=== PATIENT | female | born 1945 | race African-American/Black ===

== ENCOUNTER 2021-03-05 12:59 | Emergency (ER) | payer OTHER ==
[~2021-03-05] VITALS: Ht 165.1 cm; Wt 80.0 kg
[2021-03-05] MEDS ORDERED: GUAIFENESIN 600MG ER TABLET PO STA (13:14)
[2021-03-05] MEDS ORDERED: FLUTICASONE PROPIONATE 50MCG/SPRAY BOTTLE BOTHNSTRLS STA (13:14)
[2021-03-05] MEDS ORDERED: ALBUTEROL (0.083%) 2.5MG/3ML NEB HHN STA (13:21)
[2021-03-05] MEDS ORDERED: IPRATROPIUM BROMIDE (0.02%) 0.5MG/2.5ML NEB HHN STA (13:21)
[2021-03-05 14:36] LABS: HEMATOCRIT. 30.6 % (36.0-48.0); HEMOGLOBIN. 9.5 g/dL (12.0-16.0); MEAN CORPUSCULAR HEMOGLOBIN 25.5 pg (28.0-32.0); MEAN CORPUSCULAR VOLUME 82.5 fL (81.0-99.0); MEAN PLATELET VOLUME 8.5 fl (7.4-10.4); PLATELET 271 x1000/uL (130-400); RED BLOOD CELL COUNT 3.71 mill/uL (4.2-5.4); RED CELL DISTRIBUTION WIDTH 18.7 % (11.6-14.6)
[2021-03-05 14:39] LABS: CHLORIDE 105 mEq/L (98-107)
[2021-03-05 15:02] LABS: CLARITY URINE CLEAR (CLEAR); COLOR URINE YELLOW (YELLOW); KETONES URINE NEGATIVE (NEGATIVE); LEUKOCYTE ESTERASE URINE NEGATIVE (NEGATIVE); NITRITE URINE NEGATIVE (NEGATIVE); OCCULT BLOOD URINE NEGATIVE (NEGATIVE); PH URINE 7.5 (4.5-8.0); PROTEIN URINE NEGATIVE (NEGATIVE); SPECIFIC GRAVITY URINE 1.015 (1.005-1.030); UROBILINOGEN URINE 0.2 E.U./dL (0.2-1.0)
[2021-03-05 15:03] LABS: NUCLEATED RED BLOOD CELLS 2 /100 WBC; PLATELET ESTIMATE NORMAL
[2021-03-05] MEDS ORDERED: GUAI177L6 PO (15:24)
[2021-03-05] MEDS ORDERED: FLUT9.9S BOTHNSTRLS (15:24)
[2021-03-05] MEDS ORDERED: ACETAMINOPHEN 325MG TABLET PO ONE (16:15)
[2021-03-05 17:20] VITALS: BP 162/81
== END 2021-03-05 17:41 | disposition home or self-care (01) ==
LOC: ER 13:26
DX: H93.12 Tinnitus, left ear (principal); R09.89 Other specified symptoms and signs involving the circulatory and respiratory systems; J44.9 Chronic obstructive pulmonary disease, unspecified; R51.9 Headache, unspecified; D64.9 Anemia, unspecified; I10 Essential (primary) hypertension; E11.9 Type 2 diabetes mellitus without complications
CPT/HCPCS: 36415; 71045; 80053; 81003; 85025; 93005; 94640; 99285

== ENCOUNTER 2023-01-18 02:36 | Inpatient (IN) | payer OTHER, MEDICAID ==
[~2023-01-18] VITALS: Ht 172.7 cm; Wt 86.9 kg
[~2023-01-18 02:36] MED LIST: FLUT9.9S BOTHNSTRLS; GUAI177L6 PO
[2023-01-18] MEDS ORDERED: LABETALOL HCL VIAL 20 MG/4 ML VIAL IV ONE ×2 (03:00→06:45)
[2023-01-18] MEDS ORDERED: FUROSEMIDE 40MG/4ML VIAL IV ONE (03:00)
[2023-01-18] MEDS ORDERED: NITROGLYCERIN OINT 1GM/INCH UDPKT TD ONE (03:00)
[2023-01-18] MEDS ORDERED: NITROGLYCERIN 0.4MG TABLET SL SL PRN ×2 (03:00→13:15)
[2023-01-18 03:07] LABS: BASOPHILS % 0.4 % (0.0-2.0); EOSINOPHILS % 0.2 % (0.0-5.0); HEMOGLOBIN. 13.1 g/dL (12.0-16.0); MEAN CORPUSCULAR HEMOGLOBIN 27.9 pg (28.0-32.0); MEAN CORPUSCULAR VOLUME 87.5 fL (81.0-99.0); MEAN PLATELET VOLUME 8.9 fl (7.4-10.4); MONOCYTES % 9.1 % (2.0-8.0); NEUTROPHILS % 73.3 % (40.0-76.0); PLATELET 173 x1000/uL (130-400); RED BLOOD CELL COUNT 4.68 mill/uL (4.2-5.4); RED CELL DISTRIBUTION WIDTH 18.2 % (11.6-14.6)
[2023-01-18 03:16] LABS: CHLORIDE 102 mEq/L (98-107)
[2023-01-18] MEDS ORDERED: CEFTRIAXONE 1 G PREMIX 50 ML IV NR (03:30)
[2023-01-18] MEDS ORDERED: ALBUTEROL (0.083%) 2.5MG/3ML NEB HHN NR (03:30)
[2023-01-18] MEDS ORDERED: AZITHROMYCIN 500 MG in DEXT 5% WATER 250 ML IV NR (03:30)
[2023-01-18 04:22] LABS: BG BASE EXCESS 2.3 mmol/L (-2.0-2.0); BG CARBOXYHEMOGLOBIN 0.5 % (0.5-1.5); BG DEOXYHEMOGLOBIN 0.3 % (0.0-5.0); BG FRACTION INSPIRED OXYGEN 100; BG HCO3 ACT 28.1 mmol/L (22.0-26.0); BG METHEMOGLOBIN 0.4 % (0.0-1.5); BG OXYGEN SATURATION 99.7 % (92.0-98.5); BG OXYHEMOGLOBIN 98.8 % (94.0-97.0); BG PCO2 48.6 mmHg (35.0-45.0); BG PO2 423.1 mmHg (75.0-100.0); BG SAMPLE SITE RIGHT RADIAL; BG TOTAL HEMOGLOBIN 13.2 g/dL (12.0-18.0); BG TOTAL RESPIRATORY RATE 14 b/min; BG VENT MODE MASK - BIPAP
[2023-01-18] MEDS ORDERED: LABETALOL 5MG/ML SYR 20 MG/4 ML SYRINGE IV NR (07:00)
[2023-01-18] MEDS ORDERED: MAGNESIUM/ALUMINUM HYDROXIDE/SIMETHICONE 30ML UDC PO PRN (13:15)
[2023-01-18] MEDS ORDERED: DOCUSATE SODIUM 100MG CAPSULE PO PRN (13:15)
[2023-01-18] MEDS ORDERED: KETOROLAC 15MG/ML VIAL IV PRN (13:15)
[2023-01-18] MEDS ORDERED: IPRATROPIUM/ALBUTEROL 0.5-3(2.5)MG/3ML NEB NEB PRN (13:15)
[2023-01-18] MEDS ORDERED: ACETAMINOPHEN 325MG TABLET PO PRN ×2 (13:15)
[2023-01-18] MEDS ORDERED: ONDANSETRON HCL 4MG/2ML INJ IV PRN (13:15)
[2023-01-18] MEDS ORDERED: CLONIDINE 0.1MG TABLET PO PRN (13:15)
[2023-01-18] MEDS ORDERED: NA PHOS,M-B/NA PHOS,DI-BA ENEMA 118ML PR PRN (13:15)
[2023-01-18] MEDS ORDERED: GUAIFENESIN 200MG/10ML SUGAR FREE UDC PO PRN (13:15)
[2023-01-18] MEDS ORDERED: LEVOFLOXACIN 500MG PREMIX 100 ML IV SCH (13:30)
[2023-01-18] MEDS: IPRATROPIUM BROMIDE (0.02%) 0.5MG/2.5ML NEB HHN SCH ×2 (14:25→20:30)
[2023-01-18] MEDS: ALBUTEROL (0.083%) 2.5MG/3ML NEB HHN SCH ×2 (14:25→20:29)
[2023-01-18] MEDS ORDERED: IPRATROPIUM/ALBUTEROL 0.5-3(2.5)MG/3ML NEB HHN SCH (16:00)
[2023-01-18 16:04] LABS: VITAMIN B12 SERUM >2000 pg/mL pg/mL (211-911)
[2023-01-18] MEDS ORDERED: FUROSEMIDE 40MG/4ML VIAL IVP SCH (17:00)
[2023-01-18] MEDS: METHYLPREDNISOLONE SOD SUCC 125 MG/2 ML VIAL IV SCH (17:05)
[2023-01-18] MEDS: ENOXAPARIN 40MG/0.4ML SYR SUBCUT SCH (17:09)
[2023-01-18] MEDS: NITROGLYCERIN OINT 1GM/INCH UDPKT TD SCH (17:27)
[2023-01-18] MEDS: FUROSEMIDE 40MG/4ML VIAL IVP SCH (18:38)
[2023-01-18 19:36] LABS: *AMPHETAMINES SCREEN URINE NEGATIVE (NEGATIVE); *BARBITURATES SCREEN URINE NEGATIVE (NEGATIVE); *BENZODIAZEPINES SCREEN URINE NEGATIVE (NEGATIVE); *COCAINE SCREEN URINE NEGATIVE (NEGATIVE); CANNABINOID URINE SCREEN NEGATIVE (NEGATIVE); METHADONE URINE SCREEN NEGATIVE (NEGATIVE); OPIATES URINE SCREEN NEGATIVE (NEGATIVE); PHENCYCLIDINE URINE SCREEN NEGATIVE (NEGATIVE)
[2023-01-18 19:46] LABS: CREATINE KINASE MB FRACTION 2.1 ng/mL (0.5-3.6)
[2023-01-18 19:50] LABS: ETHANOL BLOOD < 10 mg/dL; HDL CHOLESTEROL 63 mg/dL (40-59); LDL CHOLESTEROL 50 mg/dL (5-100); T4 FREE 1.31 ng/dL (0.76-1.46); TOTAL IRON BINDING CAPACITY 317 ug/dL (250-450)
[2023-01-18] MEDS ORDERED: ZOLPIDEM TARTRATE 5MG TABLET PO PRN (21:00)
[2023-01-19] VITALS (11 sets, daily range): BP systolic 129–173; BP diastolic 71–94
[2023-01-19] MEDS ORDERED: ALBUTEROL (0.083%) 2.5MG/3ML NEB ONE (00:52)
[2023-01-19] MEDS: IPRATROPIUM BROMIDE (0.02%) 0.5MG/2.5ML NEB HHN SCH ×5 (01:00→20:26)
[2023-01-19] MEDS: ALBUTEROL (0.083%) 2.5MG/3ML NEB HHN SCH ×5 (01:00→20:26)
[2023-01-19] MEDS: GUAIFENESIN 600MG ER TABLET PO SCH ×3 (01:50→21:52)
[2023-01-19] MEDS: ASCORBIC ACID 500 MG TABLET PO SCH ×3 (01:50→21:53)
[2023-01-19] MEDS: FAMOTIDINE 20MG TABLET PO SCH ×3 (01:50→21:52)
[2023-01-19] MEDS: METHYLPREDNISOLONE SOD SUCC 125 MG/2 ML VIAL IV SCH ×4 (01:51→21:52)
[2023-01-19] MEDS: SPIRONOLACTONE 25MG TABLET PO SCH ×3 (01:51→21:53)
[2023-01-19] MEDS: NITROGLYCERIN OINT 1GM/INCH UDPKT TD SCH ×4 (01:51→21:54)
[2023-01-19] MEDS: FUROSEMIDE 40MG/4ML VIAL IVP SCH ×2 (05:28→19:13)
[2023-01-19] MEDS ORDERED: IPRATROPIUM BROMIDE (0.02%) 0.5MG/2.5ML NEB HHN PRN (07:45)
[2023-01-19] MEDS ORDERED: ALBUTEROL (0.083%) 2.5MG/3ML NEB HHN PRN (07:45)
[2023-01-19] MEDS ORDERED: ASPIRIN 325MG EC TABLET PO SCH (09:00)
[2023-01-19] MEDS ORDERED: ZINC SULFATE 220 MG ( 50 ) CAPSULE PO SCH (09:00)
[2023-01-19] MEDS ORDERED: LOSARTAN POTASSIUM 50 MG TABLET PO SCH (09:00)
[2023-01-19 09:41] LABS: HEMATOCRIT. 40.1 % (36.0-48.0); HEMOGLOBIN. 13.2 g/dL (12.0-16.0); MEAN CORPUSCULAR HEMOGLOBIN 28.6 pg (28.0-32.0); MEAN CORPUSCULAR VOLUME 87.2 fL (81.0-99.0); MEAN PLATELET VOLUME 8.7 fl (7.4-10.4); PLATELET 146 x1000/uL (130-400); RED CELL DISTRIBUTION WIDTH 17.7 % (11.6-14.6)
[2023-01-19 09:50] LABS: CHLORIDE 98 mEq/L (98-107)
[2023-01-19 09:57] LABS: PHOSPHORUS 3.2 mg/dL (2.5-4.9)
[2023-01-19] MEDS ORDERED: LEVOFLOXACIN 500MG PREMIX 100 ML IV SCH (11:00)
[2023-01-19 12:20] LABS: PLATELET ESTIMATE NORMAL
[2023-01-19] MEDS: ENOXAPARIN 40MG/0.4ML SYR SUBCUT SCH (14:23)
[2023-01-19 17:18] LABS: CREATINE KINASE MB FRACTION 2.8 ng/mL (0.5-3.6)
[2023-01-19] MEDS ORDERED: SPIRONOLACTONE 25MG TABLET ONE (21:30)
[2023-01-20] VITALS: BP 127/80
[2023-01-20] MEDS: IPRATROPIUM BROMIDE (0.02%) 0.5MG/2.5ML NEB HHN SCH (00:32)
[2023-01-20] MEDS: ALBUTEROL (0.083%) 2.5MG/3ML NEB HHN SCH (00:33)
[2023-01-20 01:00] VITALS: BP 158/85
[2023-01-20] MEDS ORDERED: LEVOFLOXACIN 500MG TABLET PO SCH (11:00)
== END 2023-01-20 08:02 | disposition short-term general hospital (02) | DRG 189 ==
LOC: ER 02:36 → MICUSO 02:55 → EDBEDREQTM 12:01 → EDBEDREQ 12:01 → EDBEDREQSVC 12:49 → 5EST 01-19 07:33
PROVIDERS: ADMIT Internal Medicine; ATTEND Internal Medicine
PROC: 5A09457 Assistance with Respiratory Ventilation, 24-96 Consecutive Hours, Continuous Positive Airway Pressure (ICD-10-PCS; principal; 2023-01-18)
DX: J96.01 Acute respiratory failure with hypoxia (principal); I50.43 Acute on chronic combined systolic (congestive) and diastolic (congestive) heart failure; J44.1 Chronic obstructive pulmonary disease with (acute) exacerbation; E44.1 Mild protein-calorie malnutrition; I16.1 Hypertensive emergency; I11.0 Hypertensive heart disease with heart failure; J96.02 Acute respiratory failure with hypercapnia; R73.03 Prediabetes; Z20.822 Contact with and (suspected) exposure to COVID-19; Z79.899 Other long term (current) drug therapy; Z99.81 Dependence on supplemental oxygen; Z68.29 Body mass index [BMI] 29.0-29.9, adult
CPT/HCPCS: 36415; 36600; 71045; 80053; 80061; 80305; 80320; 82375; 82550; 82553; 82607; 82746; 82805; 83036; 83540; 83550; 83735; 83880; 84100; 84145; 84439; 84443; 84484; 85025; 87426; 93005; 93970; 94640; 94660; 99285; C9803; J0456; J0696; J1650; J1940; J1956; J2930; J3490; J7060; G0480

== ENCOUNTER 2025-01-16 16:52 | Emergency (ER) | payer OTHER, MEDICAID ==
[~2025-01-16] VITALS: Ht 170.2 cm; Wt 72.0 kg
[2025-01-16 16:53] VITALS: O2SAT 98
[2025-01-16] MEDS: FUROSEMIDE 40MG/4ML VIAL IVP ONE (17:37)
[2025-01-16 18:33] LABS: BASOPHILS % 0.3 % (0.0-2.0); EOSINOPHILS % 0.3 % (0.0-5.0); HEMATOCRIT. 42.7 % (36.0-48.0); HEMOGLOBIN. 13.3 g/dL (12.0-16.0); LYMPHOCYTES % 10.3 % (20.0-50.0); MEAN CORPUSCULAR HEMOGLOBIN 28.9 pg (28.0-32.0); MEAN PLATELET VOLUME 8.8 fl (7.4-10.4); MONOCYTES % 5.2 % (2.0-8.0); NEUTROPHILS % 83.9 % (40.0-76.0); PLATELET 255 x1000/uL (130-400); RED BLOOD CELL COUNT 4.59 mill/uL (4.2-5.4); RED CELL DISTRIBUTION WIDTH 17.3 % (11.6-14.6); WHITE BLOOD COUNT 9.1 x1000/uL (4.5-11.0)
[2025-01-16 18:37] LABS: CHLORIDE 102 mEq/L (98-107); POTASSIUM 4.2 mEq/L (3.5-5.1); SODIUM 141 mEq/L (136-145)
[2025-01-16 18:38] LABS: CARBON DIOXIDE 29 mEq/L (21-32)
[2025-01-16 18:39] LABS: CALCIUM 9.4 mg/dL (8.7-10.4)
[2025-01-16 18:43] LABS: GLUCOSE 151 mg/dL (70-105)
[2025-01-16 18:44] LABS: UREA NITROGEN BLOOD 14 mg/dL (9-23)
[2025-01-16 18:45] LABS: TROPONIN I HIGH SENSITIVITY 20 ng/L (3.0-34)
[2025-01-16 20:40] LABS: TROPONIN I HIGH SENSITIVITY 16 ng/L (3.0-34)
[2025-01-16] MEDS: HYDRALAZINE 20MG/ML VIAL IV NR (22:24)
[2025-01-16 22:45] VITALS: BP 164/82; PULSE 68; RESP 18; TEMP 36.9; O2SAT 99
== END 2025-01-16 22:47 | disposition admitted as inpatient to this hospital (09) ==
LOC: ER 16:52 → EDBEDREQ 19:07 → ER 22:47
DX: I11.0 Hypertensive heart disease with heart failure (principal); I50.9 Heart failure, unspecified; J44.9 Chronic obstructive pulmonary disease, unspecified; Z86.73 Personal history of transient ischemic attack (TIA), and cerebral infarction without residual deficits; Z88.8 Allergy status to other drugs, medicaments and biological substances
CPT/HCPCS: 99291; 96374; 96375; 80048; 85025; 84484; 36415; 71045; 93005; J1940; J0360